=== PATIENT | male | born 1975 | race Two or more races ===

== ENCOUNTER 2019-11-05 04:27 | Emergency (ER) | payer OTHER ==
[~2019-11-05] VITALS: Ht 177.8 cm; Wt 90.7 kg
[~2019-11-05 04:27] MED LIST: CIPRO500 MG PO; FLAGYL500MG PO
== END 2019-11-05 11:51 | disposition home or self-care (01) ==
LOC: ER 04:27
DX: K57.90 Diverticulosis of intestine, part unspecified, without perforation or abscess without bleeding (principal); R10.32 Left lower quadrant pain

== ENCOUNTER 2024-03-19 04:48 | Emergency (ER) | payer OTHER ==
[~2024-03-19] VITALS: Ht 162.6 cm; Wt 68.0 kg
[2024-03-19] MEDS ORDERED: FAMOtidine 10 MG/ML (4ML VIAL) IV PUSH ONE (05:15)
[2024-03-19] MEDS ORDERED: 0.9 % SODIUM CHLORIDE 1,000 ML IV SCH (05:15)
[2024-03-19] MEDS ORDERED: KETOROLAC TROMETHAMINE 30 MG VIAL IV ONE (05:15)
[2024-03-19] MEDS ORDERED: METHYLPREDNISOLONE SOD SUCC 125 MG VIAL IV ONE (05:15)
[2024-03-19] MEDS ORDERED: ONDANSETRON HCL 2 MG/ML VIAL IV ONE (05:15)
[2024-03-19] MEDS ORDERED: ONDANSETRON HCL 2 MG/ML VIAL ONE (05:18)
[2024-03-19] MEDS ORDERED: KETOROLAC TROMETHAMINE 30 MG VIAL ONE (05:18)
[2024-03-19] MEDS ORDERED: METHYLPREDNISOLONE SOD SUCC 125 MG VIAL ONE (05:18)
[2024-03-19] MEDS ORDERED: FAMOTIDINE/PF 20 MG/2 ML VIAL ONE (05:18)
[2024-03-19 05:56] LABS: HEMATOCRIT 48.5 % (39.0-48.0); HEMOGLOBIN 16.6 g/dL (13-16.00); MEAN CELL VOLUME 88.3 fL (80.0-100.00); MEAN CORPUSCULAR HEMOGLOBIN 30.3 pg (27.00-32.0); MEAN CORPUSCULAR HGB CONC 34.3 g/dl (32.0-36.0); PLATELET COUNT 143 K/uL (150-450); RED CELL DISTRIBUTION WIDTH 13.8 % (11.5-14.5)
[2024-03-19 06:16] LABS: BILIRUBIN TOTAL 3.47 mg/dL (0.3-1.2); CALCIUM 9.5 mg/dL (8.5-10.1); CREATININE SERUM 1.42 mg/dL (0.70-1.30); GFR 53.21; GLOBULINA 4.2 G/DL (2.4-3.5); POTASSIUM 4.17 mEq/L (3.5-5.1); TOTAL PROTEIN 8.2 gm/dL (6.4-8.2)
[2024-03-19] MEDS ORDERED: METOCLOPRAMIDE HCL 10 MG in DEXTROSE 5 % IN WATER 50 ML IV ONE (07:00)
[2024-03-19] MEDS ORDERED: METOCLOPRAMIDE HCL 5 MG/ML VIAL ONE (07:01)
[2024-03-19] MEDS ORDERED: DEXAMETHASONE SODIUM PHOSPHATE 4 MG/ML VIAL IV STA (10:39)
[2024-03-19] MEDS ORDERED: DEXAMETHASONE SODIUM PHOSPHATE 4 MG/ML VIAL ONE (10:45)
== END 2024-03-19 10:51 | disposition home or self-care (01) ==
LOC: ER 04:49
PROVIDERS: General Practice
DX: K29.70 Gastritis, unspecified, without bleeding (principal); R11.2 Nausea with vomiting, unspecified